=== PATIENT | female | born 1965 | race Caucasian/White ===

== ENCOUNTER → 2020-08-09 17:48 | Outpatient (CLI) | payer OTHER, SELFPAY ==
--- NOTE | ~2020-08-09 | DEXA_ITS ---
Bone Density Report Name: Jaren Baird Age: 55 Sex: Female Ethnicity: White Date of : 1965 Indication: postmenopausal; screening for osteoporosis; Referring Provider: MELL, MIGDALIA Study: Bone densitometry was performed. Exam Date: August 09, 2020 Accession number: [id number] Bone Density: Region BMD T-score Z-score Classification AP Spine (L1-L4) 0.955 -0.8 0.4 Normal Femoral Neck (Left) 0.818 -0.3 0.9 Normal Total Hip (Left) 0.897 -0.4 0.4 Normal Femoral Neck (Right) 0.838 -0.1 1.1 Normal Total Hip (Right) 0.897 -0.4 0.4 Normal Total Hip Mean 0.897 -0.4 0.4 Normal World Health Organization criteria for BMD impression classify patients as: Normal (T-score at or above -1.0), Osteopenia (T-score between -1.0 and -2.5), or Osteoporosis (T-score at or below -2.5). 10-year Fracture Risk: FRAX not reported because: All T-scores for Spine Total, Hip Total, Femoral Neck at or above -1.0 Previous Exams: Region Exam Age BMD T-score BMD Change BMD Change Date g/cm2 vs Baseline vs Previous AP Spine(L1-L4) 08/09/2020 55 0.955 -0.8 -0.080* -0.080* 08/23/2015 50 1.035 -0.1 Total Hip(Left) 08/09/2020 55 0.897 -0.4 -0.032* -0.032* 08/23/2015 50 0.930 -0.1 Total Hip(Right) 08/09/2020 55 0.897 -0.4 -0.041* -0.041* 08/23/2015 50 0.938 0.0 *Denotes significance at 95% confidence level, LSC for AP Spine = 0.022 g/cm2, LSC for Total Hip = 0.027 g/cm2 Clinical Information Provided by Patient: Has used the following medications: Vitamin D Patient maximum height was 64.0 Menopause Age: 54 No regular weight bearing exercise Drinks caffeinated beverages Onset of menses at age 10 Number of children 2 Impression: The patient has normal bone mass. The BMD for the AP Spine(L1-L4) decreased, changing by -0.080 since the last DXA exam. The BMD for the Total Hip(Left) decreased, changing by -0.032 since the last DXA exam. The BMD for the Total Hip(Right) decreased, changing by -0.041 since the last DXA exam. Discussion: BONE DENSITY IS ABOVE THE MINIMUM DESIRABLE LEVEL AT ALL SKELETAL SITES TESTED. This patient?s bone mineral density is above the minimum desirable level (T-score -1.0 or better) at all sites measured. The patient should follow a healthful lifestyle (good nutrition with adequate calcium and vitamin D, and appropriate weight-bearing exercise). Follow-Up: Consider repeati
--- NOTE | ~2020-08-09 | MM_ITS ---
EXAMINATION: MM screening [facility] BI w caridad HISTORY: Screening TECHNIQUE: Craniocaudal and mediolateral oblique 3-D tomosynthesis images were obtained and synthetic 2-D images were generated. CAD analysis was submitted and interpreted. COMPARISON: Comparison to multiple prior studies sequentially, with oldest reviewed study dated 11/2016. BREAST PARENCHYMAL COMPOSITION: There are scattered areas of fibroglandular density. FINDINGS: There is no evidence of suspicious mass, calcification, or architectural distortion to sugg est malignancy in either breast. There has been no suspicious interval change. IMPRESSION: 1. No mammographic evidence of malignancy. 2. Recommend routine screening mammography in one year. BI-RADS Category 1: Negative Reviewed, dictated and finalized at location A.
== END ==
PROVIDERS: Visit Provider Nurse Practitioner
DX: Z12.31 Encounter for screening mammogram for malignant neoplasm of breast (principal); Z78.0 Asymptomatic menopausal state
CPT/HCPCS: 77063; 77067; 77080

== ENCOUNTER → 2021-09-26 16:48 | Outpatient (CLI) | payer OTHER, SELFPAY ==
--- NOTE | ~2021-09-26 | MM_ITS ---
EXAMINATION: MM screening [facility] w car[facility] HISTORY: Screening mammogram TECHNIQUE: Craniocaudal and mediolateral oblique 3-D tomosynthesis images were obtained and synthetic 2-D images were generated. CAD analysis was submitted and interpreted. COMPARISON: 08/09/2020, 06/16/2019 bilateral screening mammogram examinations 04/25/2018 bilateral diagnostic mammogram BREAST PARENCHYMAL COMPOSITION: There are scattered areas of fibroglandular density. FINDINGS: There is no evidence of suspicious mass, calcification, or architectural distortion to sugg est malignancy in either breast. There has been no suspicious interval change. IMPRESSION: 1. No mammographic evidence of malignancy. 2. Recommend routine screening mammography in one year. BI-RADS Category 1: Negative Reviewed, dictated and finalized at location A.
== END ==
PROVIDERS: PCP Family Medicine; Visit Provider Nurse Practitioner
DX: Z12.31 Encounter for screening mammogram for malignant neoplasm of breast (principal)
CPT/HCPCS: 77063; 77067

== ENCOUNTER → 2022-11-30 12:14 | Outpatient (CLI) | payer OTHER, SELFPAY ==
--- NOTE | ~2022-11-30 | MM_ITS ---
EXAMINATION: MM screening [facility] BI w caridad HISTORY: Screening mammogram TECHNIQUE: Craniocaudal and mediolateral oblique 3-D tomosynthesis images were obtained and synthetic 2-D images were generated. CAD analysis was submitted and interpreted. COMPARISON: 09/26/2021, 08/09/2020, 06/16/2019 BREAST PARENCHYMAL COMPOSITION: There are scattered areas of fibroglandular density. FINDINGS: No suspicious mass, calcification, or architectural distortion are identified in either juarez ast to suggest malignancy. There has been no suspicious interval change. IMPRESSION: 1. No mammographic evidence of malignancy. 2. Recommend routine screening mammography in one year. BI-RADS Category 1: Negative Reviewed, dictated and finalized at location A.
== END ==
PROVIDERS: PCP Obstetrics & Gynecology Gynecology; Visit Provider Obstetrics & Gynecology Gynecology
DX: Z12.31 Encounter for screening mammogram for malignant neoplasm of breast (principal)
CPT/HCPCS: 77063; 77067

== ENCOUNTER 2023-03-19 20:34 | Observation (INO) | payer OTHER, SELFPAY ==
[2023-03-19] VITALS (10 sets, daily range): BP systolic 93–115; BP diastolic 63–77; PULSE 117–147; RESP 13–20; TEMP 36.4–36.5; O2SAT 99–100; BMI 20.3
--- NOTE | ~2023-03-19 | XR_ITS ---
EXAMINATION: XR chest 1V portable INDICATION: Chest pain and palpitations TECHNIQUE: Portable AP chest at 2106 hours COMPARISON: None available FINDINGS: The lungs are free of acute opacities. No pleural effusion or pneumothorax. The cardiomedia stinal silhouette is normal. IMPRESSION: 1. No acute cardiopulmonary abnormality. Reviewed, dictated and finalized at location F.
--- NOTE | 2023-03-19 20:37 | ECG_ITS ---
Measurements Intervals [place] Rate: 147 P: PA: 0 QRS: 28 QRSD: 89 T: 40 QT: 332 QTc: 520 Interpretive Statements REDUCED QUALITY ELECTROCARDIOGRAM BECAUSE OF BASELINE ARTIFACT ATRIAL FIBRILLATION WITH RAPID VENTRICULAR RESPONSE NONSPECIFIC ST AND T-WAVE ABNORMALITY ABNORMAL ECG NO PREVIOUS ECG AVAILABLE FOR COMPARISON Electronically Signed On 03-20-2023 8:52:19 CDT by Zeb Eqsuivel M.D.
--- NOTE | 2023-03-19 20:51 | ED.GENADULT ---
HPI - General Adult General Chief complaint: Arrhythmia/Palpitations Stated complaint: afib, nausea, vomiting Time Seen by Provider: 03/19/23 20:38 History of Present Illness HPI narrative: Patient is a 58-year-old female presents emergency department with chief complaint of a strange feeling in her chest. Patient reports that she had a COVID shot today then went to a bar/restaurant to have a couple of cocktails felt as though she was getting very drunk off of 2 drinks and then went outside got nauseated and started having an episode of vomiting and then felt as though she had some tightness in her chest. EMS was called the patient was found to be in atrial fibrillation with rapid ventricular response was transported to the emergency department Related Data Home Medications Medication Instructions Recorded Confirmed cholecalciferol (vitamin D3) 50 50 mcg PO DAILY 01/14/22 01/22/23 mcg (2,000 unit) capsule Allergies Allergy/AdvReac Type Severity Reaction Status Date / Time No Known Allergies Allergy Verified 01/22/23 09:57 Review of Systems Review of Systems: A 10 system review of systems was completed on the patient and is negative except for what is stated in the HPI. Nursing and ancillary documentation was reviewed. PMFSH Past Medical History Medical History Elevated bilirubin Healthy adult Family History Family History Mother Family history of arthritis Father Family history of arthritis Malignant neoplasm of prostate Social History Social History Smoking status: Never smoker Second hand tobacco smoke exposure: No Alcohol intake: never Drinks per week: 3 Substance use: never Substance use type: does not use Lack of Transportation: No Lack of Food: Never True Current Housing: I Have Housing Concerned About Future Housing: No Difficulty Paying Gas/Electric Bills: No Difficulty Paying for Meds: No Currently Unemployed: No Education: Master's Degree or Higher Difficulty w/ Childcare or Family Care: No Occupation/Education: occupation 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 HEAD: Normocephalic, atraumatic. EYES: PERRLA and EOMI. ENT: Nares clear, no rhinorrhea or epistaxis. Mucous membranes moist. NECK: Supple. CHEST: Clear to auscultation. No respiratory distress. HEART: Tachycardic rate and irregular rhythm. No murmur heard. Normal peripheral pulses. ABDOMEN: Soft, nontender, nondistended, normal active bowel sounds. EXTREMITIES: Normal range of motion. No edema. SKIN: Warm, dry, no rash. NEURO: No focal deficits. Alert and oriented x3. PSYCH: Anxious. Course Vital Signs Vital signs: Vital Signs Temperature 36.5 C 03/19/23 20:41 Pulse Rate 129 H 03/19/23 20:41 Respiratory Rate 20 03/19/23 20:41 Blood Pressure 115/74 03/19/23 20:41 Pulse Oximetry 100 03/19/23 20:41 Oxygen Delivery Room Air 03/19/23 20:41 Temperature 36.5 C 03/19/23 20:41 Pulse Rate 117 H 03/19/23 21:20 Respiratory Rate 15 03/19/23 21:20 Blood Pressure 113/77 03/19/23 21:20 Pulse Oximetry 99 03/19/23 21:20 Oxygen Delivery Room Air 03/19/23 20:41 Medical Decision Making MDM Narrative Medical decision making narrative: Differential diagnosis includes A-fib with RVR ACS, electrolyte abnormality, hyper or hypothyroidism Laboratory studies were obtained on the patient which showed a normal CBC electrolytes showed a potassium of 3.1 bilirubin was 2.2 otherwise liver enzymes were normal troponin was negative BNP was 68 lipase was normal TSH was 0.842 Chest x-ray showed no foca
[2023-03-19] MEDS: dilTIAZem HCl INJ 25 MG/5 ML VIAL 10 MG IV PUSH (21:01)
[2023-03-19] MEDS: ASPIRIN 81 MG CHEWABLE TABLET 324 MG PO (21:01)
[2023-03-19] MEDS: dilTIAZem 100 MG/100 ML 100 MG/100 ML BAG IV CONT (21:15)
[2023-03-19 21:17] LABS: Basophils Absolute Auto 0.1 K/mm3 (0.0-0.1); Basophils Percent Auto 0.5 % (0.2-1.2); Eosinophils Absolute Auto 0.1 K/mm3 (0-0.3); Eosinophils Percent Auto 1.1 % (0-4.4); Hematocrit 44.5 % (37.0-47.0); Hemoglobin 14.9 g/dL (12.0-15.0); Immature Granulocyte Absolute 0.04 K/mm3 (0.00-0.031); Immature Granulocyte Percent A 0.4 % (0-0.5); Lymphocytes Absolute Auto 2.71 K/mm3 (0.9-3.2); Lymphocytes Percent Auto 27.8 % (18.3-44.2); Mean Corpuscular HGB Conc 33.5 g/dl (32-36); Mean Corpuscular Hemoglobin 28.7 pg (26-34); Mean Corpuscular Volume 85.6 fl (80-100); Mean Platelet Volume 8.5 fl (7.4-10.4); Monocytes Absolute Auto 0.7 K/mm3 (0.1-0.6); Monocytes Percent Auto 6.7 % (2.6-8.5); Neutrophils Absolute Auto 6.2 K/mm3 (1.3-6.7); Neutrophils Percent Auto 63.5 % (45.5-73.1); Platelet Count Result 342 k/mm3 (150-375); Red Cell Distribution Width 12.5 % (11.5-14.5); White Blood Count 9.8 K/mm3 (4.5-10.0)
[2023-03-19 21:29] LABS: Alanine Aminotransferase 23 U/L (6-35); Albumin Level 4.7 g/dL (3.5-5.1); Alkaline Phosphatase 73 U/L (38-126); Anion Gap 16 mmol/L (8-16); Aspartate Amino Transferase 33 U/L (14-36); Bilirubin,Total 2.2 mg/dL (0.2-1.3); Blood Urea Nitrogen 11 mg/dL (7-17); Calcium 9.2 mg/dL (8.4-10.2); Carbon Dioxide 20 mmol/L (22-30); Chloride 103 mmol/L (98-107); Estimated CRCL calculation 70 ml/min; Estimated Glomerular Filt Rate > 60; Glucose 148 mg/dL (65-110); Lipase 95 U/L (23-300); Magnesium 2.1 mg/dL (1.6-2.3); Potassium 3.1 mmol/L (3.4-5.0); Sodium 139 mmol/L (137-145)
[2023-03-19 21:35] LABS: INR 0.9; Partial Thromboplastin Time 26.2 SECONDS (22.3-36.8); Prothrombin Time 12.3 Seconds (11.1-14.7)
[2023-03-19 21:41] LABS: NT Pro B Type Natriuretic Pept 68 pg/mL (19.9-100); Troponin I < 0.012 ng/mL (0.000-0.034)
[2023-03-19 22:00] LABS: Thyroid Stimulating Hormone 0.842 uIU/mL (0.465-4.680)
[2023-03-19 23:14] LABS: Appearance Urine Clear (Clear); Bacteria Urine None Seen /hpf; Bilirubin Urine Negative (Negative); Blood Urine Negative (Negative); Color Urine Yellow (Yellow); Glucose Urine UA Negative (Negative); Ketones Urine 1+ mg/dL (Negative); Leukocyte Esterase Ur 2+ LEU/UL (Negative); Nitrate Urine Negative (Negative); Non Pathogenic Casts 0-2; Protein Urine Negative (Negative); RBC Urine 0-2 /hpf (0-2); Specific Grav Ur 1.011 (1.001-1.035); Squamous Epithelial Cell Urine None seen /hpf (Few); Urobilinogen Urine 0.2 mg/dL (<2.0); WBC Urine 21-50 /hpf; pH Urine 6.5 (5.0-9.0)
[2023-03-19 23:36] LABS: Add Urine Microscopic? YES
[2023-03-19] MEDS: ENOXAPARIN 60 MG/0.6 ML SYRINGE 56 MG SUB-Q (23:42)
--- NOTE | 2023-03-19 23:50 | PC.NURSE ---
This patient, Jaren Baird, was admitted to IMU Room 210-01. Patient/family oriented to hospital policies and general routines including ID bracelet, bed and alarms, visiting hours, pain management, procedures, bathroom and other care routines, personal items, smoking policy, room service/diet, and visiting hours. Information on how to activate the Rapid Response Team has been discussed. Patient/Family are encouraged to report perceived risks to care and to ask questions if they do not understand what they are told or what they should do.
[2023-03-20] VITALS (21 sets, daily range): BP systolic 100–130; BP diastolic 57–65; PULSE 61–118; RESP 12–18; TEMP 36.4–36.8; O2SAT 98–100
[2023-03-20 01:19] LABS: Troponin I < 0.012 ng/mL (0.000-0.034)
[2023-03-20 05:25] LABS: Troponin I < 0.012 ng/mL (0.000-0.034)
--- NOTE | 2023-03-20 07:12 | ECG_ITS ---
Measurements Intervals [place] Rate: 66 P: 72 NM: 140 QRS: 6 QRSD: 98 T: 7 QT: 419 QTc: 439 Interpretive Statements SINUS RHYTHM WITH SINUS ARRHYTHMIA WITHIN NORMAL LIMITS COMPARED TO ECG 03/19/2023 20:39:50 SINUS RHYTHM NOW REPLACES ATRIAL FIBRILLATION Electronically Signed On 03-21-2023 8:14:33 CDT by Zeb Esquivel M.D.
[2023-03-20] MEDS: ASPIRIN 81 MG CHEWABLE TABLET PO (08:04)
--- NOTE | 2023-03-20 10:17 | PM.IMHP ---
H&P: HPI History of Present Illness Date/Time: 03/20/23 10:17 Chief Complaint: Palpitation t Narrative: Patient is a 58-year-old female without significant past med history, present ED with a chief complaint of palpitation and chest discomfort. Patient received COVID and went to a bar/restaurant to have a couple of cocktails felt very drunk off of 2 drinks and started feeling nauseated and started vomiting. Patient denies black emesis, melena, red blood per rectum. Patient feels palpitation and chest discomfort. EMS was called, and patient was brought to ED for evaluation treatment. In the ED, the patient was found to be in atrial fibrillation with rapid ventricular response was transported to the emergency department. In the ED, patient found AFib RVR, no specific ST-T changes, heart rate about 147 blood pressure soft, and patient also found to have hypokalemia 3.1, elevated bilirubin 2.2, liver enzymes within normal limit, troponin negative, BNP 6 to, TSH 0.842. Chest x-ray showed no focal infiltrate. Patient was given a Cardizem bolus and was started on a Cardizem drip in the ED, we admit patient for further evaluation and management Review of Systems Review of Systems: ROS negative except above PMFSH Past Medical History Medical History Elevated bilirubin Healthy adult Family History Family History (Updated 03/20/23 @ 00:10 by Marina Cook RN) Mother Family history of arthritis Malignant ovarian neoplasm Father Malignant neoplasm of prostate Family history of arthritis Social History Social History Smoking status: Never smoker Second hand tobacco smoke exposure: No Alcohol intake: current Drinks per week: 3 Substance use: never Substance use type: does not use Lack of Transportation: No Lack of Food: Never True Current Housing: I Have Housing Concerned About Future Housing: No Difficulty Paying Gas/Electric Bills: No Difficulty Paying for Meds: No Currently Unemployed: No Education: Bachelor's Degree Difficulty w/ Childcare or Family Care: No Occupation/Education: occupation 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: No Agree to blood products: Yes Meds Home Medications and Allergies Home Medications Medication Instructions Recorded Confirmed Type cholecalciferol (vitamin D3) 25 75 mcg PO DAILY 03/19/23 03/19/23 History mcg (1,000 unit) tablet (Vitamin D3) Allergies Allergy/AdvReac Type Severity Reaction Status Date / Time No Known Allergies Allergy Verified 03/19/23 23:53 Vital Signs Vital Signs - 24 hr 03/19/23 20:41 03/19/23 21:15 03/19/23 21:17 Temperature 97.7 F Pulse Rate 129 H 121 H 134 H Respiratory Rate 20 Blood Pressure 115/74 113/77 Pulse Oximetry 100 Oxygen Delivery Room Air 03/19/23 21:20 03/19/23 22:25 03/19/23 23:00 Temperature Pulse Rate 117 H 132 H 138 H Respiratory Rate 15 Blood Pressure 113/77 93/66 L Pulse Oximetry 99 Oxygen Delivery 03/19/23 22:53 03/19/23 23:12 03/19/23 23:15 Temperature Pulse Rate 145 H 147 H 131 H Respiratory Rate 13 15 15 Blood Pressure 96/68 L 109/71 109/71 Pulse Oximetry 100 100 100 Oxygen Delivery 03/19/23 23:50 03/20/23 00:00 03/20/23 00:00 Temperature 97.5 F L Pulse Rate 125 H 111 H Respiratory Rate 16 Blood Pressure 98/63 L Pulse Oximetry 100 Oxygen Delivery Room Air 03/20/23 02:00 03/20/23 03:10 03/20/23 04:00 Temperature 97.5 F L Pulse Rate 118 H 101 H 116 H Respiratory Rate 16 Blood Pressure 114/65 Pulse Oximetry 98 Oxygen Delivery 03/20/23 04:35 03/20/23 04:00 03/20/23 06:00 Temperature Pulse Rate 96 87 Respiratory Rate Blood Pressure Pulse Oximetry Oxygen Delivery Room Air 03/20/23 07:59 03/20
--- NOTE | 2023-03-20 10:29 | ECHO_ITS ---
Patient Info Name: Jaren Baird Age: 58 years : 1965 Gender: Female Ht: 63 in Wt: 115 lbs BSA: 1.52 m2 HR: 78 bpm BP: 102 / 57 mmHg Heart Rhythm: Sinus Rhythm Technical Quality: Fair Exam Date: 03/20/2023 1:53 PM Exam Location: [facility] Pulmonary Patient Status: Inpatient Admit Date: 03/19/2023 Staff Ordering Physician: Enriqueta Dawson MD [employer]: Mami Shukla RDCS Attending Provider: John Velasquez MD Exam Type: CA echo doppler color flow Study Info Indications - dizziness Complete two-dimensional, color flow and Doppler transthoracic echocardiogram is performed. Summary 1. Complete two-dimensional, color flow and Doppler transthoracic echocardiogram is performed. 2. Normal left and right ventricular size with normal systolic function. 3. Mild aortic valve sclerosis with trivial AI and no aortic stenosis. 4. Sinus rhythm. Left Ventricle Left ventricular chamber dimension is normal. Left ventricular systolic function is normal, estimated at 60-65%. The left ventricular diastolic function is normal. Right Ventricle Right ventricular chamber dimension is normal. Left Atria Left atrial chamber dimension is normal. Right Atria Right atrial chamber dimension is normal. Aortic Valve The aortic valve is trileaflet. There is mild aortic valve sclerosis. There is trace aortic valve regurgitation. Pulmonic Valve The pulmonic valve is normal. Mitral Valve The mitral valve has normal leaflets. Tricuspid Valve The tricuspid valve leaflets are normal. Pericardium/Pleural The pericardium appears normal. Aorta The aortic root size at the sinus of Valsalva is normal. Left Ventricular Outflow Tract Name Value Normal LVOT 2D LVOT Diameter 2.0 cm LVOT Doppler LVOT Peak Gradient 4 mmHg LVOT Mean Gradient 3 mmHg LVOT VTI 21 cm LVOT VTI/AV VTI Ratio 0.9 LVOT Stroke Volume 65 ml LVOT CO 14.6 l/min LVOT CI 9.6 l/min/m2 Pulmonic Valve Name Value Normal RVOT Doppler RVOT Peak Gradient 1 mmHg PV Doppler PV Peak Gradient 2 mmHg Mitral Valve Name Value Normal MV Doppler MV Decel [place] 335 cm/s2 MV PHT 65 ms MV Area (PHT) 3.4 cm2 4.0-5.0 MV Diastolic Function MV E Peak Velocity
--- NOTE | 2023-03-20 10:32 | PM.DS ---
DS: Summary Time Spent with Patient Time attestation: Total time spent providing and/or coordinating discharge services: DS: Data Data Completed and Pending Labs on day of discharge: Labs from last 24 hours 03/20/23 03/20/23 03/19/23 04:23 00:34 22:49 WBC RBC Hgb Hct MCV MCH MCHC RDW Plt Count MPV Immature Gran % (Auto) Neut % (Auto) Lymph % (Auto) [place] % (Auto) Eos % (Auto) Baso % (Auto) Lymph # (Auto) [place] # (Auto) Eos # (Auto) Baso # (Auto) Abs Immat Gran (auto) Absolute Neuts (auto) Absolute Nucleated RBC Nucleated RBC % PT INR APTT Sodium Potassium Chloride Carbon Dioxide Anion Gap BUN Creatinine Estim Creat Clear Calc Estimated GFR Glucose Calcium Magnesium Total Bilirubin AST ALT Alkaline Phosphatase Troponin I < 0.012 < 0.012 NT-Pro-B Natriuret Pep Total Protein Albumin Lipase TSH Urine Color Yellow Urine Appearance Clear Urine pH 6.5 Ur Specific [place] 1.011 Urine Protein Negative Urine Glucose (UA) Negative Urine Ketones 1+ H Ur Blood (Man) Negative Urine Nitrate Negative Urine Bilirubin Negative Urine Urobilinogen 0.2 Leukocyte Esterase Rfl 2+ H Urine RBC 0-2 Urine WBC 21-50 H Ur Squamous Epith Cells None seen Urine Bacteria None seen Urine Casts 0-2 03/19/23 03/19/23 03/19/23 21:04 21:04 21:04 WBC RBC Hgb Hct MCV MCH MCHC RDW Plt Count MPV Immature Gran % (Auto) Neut % (Auto) Lymph % (Auto) [place] % (Auto) Eos % (Auto) Baso % (Auto) Lymph # (Auto) [place] # (Auto) Eos # (Auto) Baso # (Auto) Abs Immat Gran (auto) Absolute Neuts (auto) Absolute Nucleated RBC Nucleated RBC % PT INR APTT Sodium Potassium Chloride Carbon Dioxide Anion Gap BUN Creatinine Estim Creat Clear Calc Estimated GFR Glucose Calcium Magnesium Total Bilirubin AST ALT Alkaline Phosphatase Troponin I NT-Pro-B Natriuret Pep Total Protein Albumin 4.7 Lipase 95 Cancelled TSH 0.842 Cancelled Urine Color Urine Appearance Urine pH Ur Specific [place] Urine Protein Urine Glucose (UA) Urine Ketones Ur Blood (Man) Urine Nitrate Urine Bilirubin Urine Urobilinogen Leukocyte Esterase Rfl Urine RBC Urine WBC Ur Squamous Epith Cells Urine Bacteria Urine Casts 03/19/23 03/19/23 03/19/23 21:04 21:04 21:04 WBC RBC Hgb Hct MCV MCH MCHC RDW Plt Count MPV Immature Gran % (Auto) Neut % (Auto) Lymph % (Auto) [place] % (Auto) Eos % (Auto) Baso % (Auto) Lymph # (Auto) [place] # (Auto) Eos # (Auto) Baso # (Auto) Abs Immat Gran (auto) Absolute Neuts (auto) Absolute Nucleated RBC Nucleated RBC % PT INR APTT Sodium Potassium Chloride Carbon Dioxide Anion Gap BUN Creatinine Estim Creat Clear Calc Estimated GFR Glucose Calcium Magnesium Total Bilirubin AST ALT Alkaline Phosphatase 73 Troponin I < 0.012 NT-Pro-B Natriuret Pep 68 Cancelled Total Protein 8.0 Cancelled Albumin Cancelled Lipase TSH Urine Color Urine Appearance Urine pH Ur Specific [place] Urine Protein Urine Glucose (UA) Urine Ketones Ur Blood (Man) Urine Nitrate Urine Bilirubin Urine Urobilinogen Leukocyte Esterase Rfl Urine RBC Urine WBC Ur Squamous Epith Cells Urine Bacteria Urine Casts 03/19/23 03/19/23 03/19/23 21:04 21:04 21:04 WBC RBC Hgb Hct MCV MCH MCHC RDW Plt Count MPV Immature Gran % (Auto) Neut % (Auto) Lymph % (Auto) [place] % (Auto) Eos %
[2023-03-20 11:08] LABS: Basophils Percent Auto 0.3 % (0.2-1.2); Eosinophils Absolute Auto 0.1 K/mm3 (0-0.3); Eosinophils Percent Auto 0.6 % (0-4.4); Hematocrit 42.5 % (37.0-47.0); Hemoglobin 13.9 g/dL (12.0-15.0); Immature Granulocyte Absolute 0.01 K/mm3 (0.00-0.031); Immature Granulocyte Percent A 0.1 % (0-0.5); Lymphocytes Absolute Auto 2.42 K/mm3 (0.9-3.2); Lymphocytes Percent Auto 25.9 % (18.3-44.2); Mean Corpuscular HGB Conc 32.7 g/dl (32-36); Mean Corpuscular Volume 88.5 fl (80-100); Mean Platelet Volume 8.8 fl (7.4-10.4); Monocytes Absolute Auto 0.5 K/mm3 (0.1-0.6); Monocytes Percent Auto 5.5 % (2.6-8.5); Neutrophils Absolute Auto 6.3 K/mm3 (1.3-6.7); Neutrophils Percent Auto 67.6 % (45.5-73.1); Platelet Count Result 337 k/mm3 (150-375); Red Cell Distribution Width 12.8 % (11.5-14.5); White Blood Count 9.3 K/mm3 (4.5-10.0)
[2023-03-20 11:17] LABS: Anion Gap 5 mmol/L (8-16); Blood Urea Nitrogen 11 mg/dL (7-17); Carbon Dioxide 29 mmol/L (22-30); Chloride 103 mmol/L (98-107); Estimated CRCL calculation 82 ml/min; Estimated Glomerular Filt Rate > 60; Glucose 94 mg/dL (65-110); Magnesium 2.1 mg/dL (1.6-2.3); Potassium 3.4 mmol/L (3.4-5.0); Sodium 137 mmol/L (137-145)
[2023-03-20] MEDS: POTASSIUM CHLORIDE 20 MEQ PACKET (FOR LIQUID) 40 MEQ PO (11:44)
--- NOTE | 2023-03-20 12:42 | PM.CNCAR ---
Assessment and Plan Assessment and plan (1) Atrial fibrillation with rapid ventricular response: Code(s): I48.91 - Unspecified atrial fibrillation Status: Acute Plan This is a 58-year-old woman with a paucity of previous medical problems presenting with an episode of symptomatic atrial fibrillation last evening. She has an unremarkable cardiovascular physical exam and is back in sinus rhythm after receiving some intravenous diltiazem last evening. At this point I would recommend starting a low dose of metoprolol and will wait for her echocardiographic findings. Her chads Vasc score is 1 so she does not have to be anticoagulated at this time Zeb Esquivel MD [facility] History of Present Illness History of Present Illness Consult date/time: 03/20/23 12:42 Reason For Visit: New Onset A-fib w/RVR Narrative: This is a 58-year-old woman I am seeing at the request of the hospitalist because of atrial fibrillation. She has no prior history of this and I have not seen her previously in consultation. 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 She did have a couple of cocktails and afterwards while she was there she felt unwell in the sense of being lightheaded and somewhat nauseated. She thought that was very unusual to feel like that after is having a couple of drinks eventually she felt bad enough where she advised some of her colleagues to some in an ambulance. When EMS arrived she was noted to be in AFib with rapid ventricular response. She was brought to the emergency room here for evaluation and management. She was of course treated with intravenous diltiazem bolus and infusion. Over the night she was admitted to the IMU and she did convert to normal sinus rhythm. She feels a bit weak this morning but otherwise is comfortable and asymptomatic. She has normal looking electrocardiogram following conversion to sinus. She says she is not known to have any sort of cardiac problems in the past and she really does not have much in the way of significant past medical history she specifically denies hypertension dyslipidemia cigarette smoking or sleep disordered breathing. 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 An echocardiogram has been ordered by the hospitalists which has yet to be performed. Review of Systems Constitutional: Constitutional: Reports no additional constitutional complaints Eyes: Eyes: Reports no additional eye complaints ENT: Reports system reviewed and no additional complaints, except as documented Cardiovascular: Cardiovascular: Reports as per HPI Respiratory: Respiratory: Reports no additional respiratory complaints Gastrointestinal: Gastrointestinal: Reports no additional gastrointestinal complaints Musculoskeletal: Musculoskeletal: Reports no additional musculoskeletal complaints Integumentary/Breasts: Skin/Breast: Reports system reviewed and no additional complaints, except as docu Neurologic: Reports system reviewed and no additional complaints, except as documented Endocrine: Endocrine: Reports no additional endocrine complaints Hematologic/Lymphatic: Hematologic/Lymphatic: Reports no additional hematologic/lymphatic complaints Allergic/Immunologic: Allergic/Immunologic: Reports no additional allergic/immunologic complaints [facility] Past Medical History Medical History Elevated bilirubin Healthy adult Family History Family History (Updated 03/20/23 @ 00:10 by Marina Cook RN) Mother Family history of arthritis Malignant ovarian neoplasm Father Malignant neoplasm of prostate Family history of arthritis Social History Social History Smoking status: Never smoker Second hand tobacco smoke exposure: No Alcohol intake: c
[2023-03-20] MEDS: METOPROLOL SUCCINATE EXT REL 25 MG TABCR PO (13:25)
[2023-03-20 13:49] LABS: Amphetamine Screen Urine Negative (Negative); Barbiturate Screen Urine Negative (Negative); Benzodiazepines Screen Urine Negative (Negative); Cannabinoid Screen Urine Negative (Negative); Cocaine Screen Urine Negative (Negative); Methadone Screen Urine Negative (Negative); Opiate Screen Urine Negative (Negative); Phencyclidine Screen Urine Negative (Negative)
[2023-03-21] VITALS (9 sets, daily range): BP systolic 120; BP diastolic 61–62; PULSE 69–84; RESP 14–18; TEMP 36.3–36.7; O2SAT 97–99
[2023-03-21 04:35] LABS: Basophils Percent Auto 0.7 % (0.2-1.2); Eosinophils Absolute Auto 0.1 K/mm3 (0-0.3); Eosinophils Percent Auto 2.5 % (0-4.4); Immature Granulocyte Absolute 0.01 K/mm3 (0.00-0.031); Immature Granulocyte Percent A 0.2 % (0-0.5); Lymphocytes Absolute Auto 2.18 K/mm3 (0.9-3.2); Lymphocytes Percent Auto 39.4 % (18.3-44.2); Mean Corpuscular HGB Conc 33.3 g/dl (32-36); Mean Corpuscular Hemoglobin 29.2 pg (26-34); Mean Corpuscular Volume 87.6 fl (80-100); Mean Platelet Volume 8.4 fl (7.4-10.4); Monocytes Absolute Auto 0.5 K/mm3 (0.1-0.6); Monocytes Percent Auto 8.3 % (2.6-8.5); Neutrophils Absolute Auto 2.7 K/mm3 (1.3-6.7); Neutrophils Percent Auto 48.9 % (45.5-73.1); Platelet Count Result 250 k/mm3 (150-375); Red Blood Count 4.45 M/mm3 (4.2-5.4); Red Cell Distribution Width 12.8 % (11.5-14.5); White Blood Count 5.5 K/mm3 (4.5-10.0)
[2023-03-21 05:03] LABS: Anion Gap 2 mmol/L (8-16); Blood Urea Nitrogen 13 mg/dL (7-17); Calcium 8.8 mg/dL (8.4-10.2); Carbon Dioxide 29 mmol/L (22-30); Chloride 106 mmol/L (98-107); Estimated CRCL calculation 70 ml/min; Estimated Glomerular Filt Rate > 60; Glucose 92 mg/dL (65-110); Potassium 3.5 mmol/L (3.4-5.0); Sodium 137 mmol/L (137-145)
--- NOTE | 2023-03-21 09:09 | PM.PNCARD ---
Progress Note: A&P Assessment and Plan (1) Atrial fibrillation with rapid ventricular response: Code(s): I48.91 - Unspecified atrial fibrillation Status: Acute Plan 58-year-old woman with paroxysmal atrial fibrillation. Patient has mild sclerosis of the aortic valve with trivial AI otherwise no structural cardiac abnormalities on echo. At this time her modest dose of metoprolol should be continued and I will see her in the office for follow-up. She does not require anticoagulation at this time as I mentioned in my consultation note yesterday. Anticipate discharge home today. Zeb Esquivel MD [facility] Subjective Date/time seen: Date of service: 03/21/23 09:09 Interval history: Follow-up visit in this 58-year-old woman with paroxysmal atrial fibrillation Exam Const: General: comfortable and no acute distress HENMT: Mouth: Yes moist mucous membranes Eyes: Sclera: sclerae normal Neck: Neck: supple and no JVD Resp: Effort & Inspection: normal respiratory effort Auscultation: clear to auscultation bilaterally Cardio: Rate: regular rate Rhythm: regular rhythm GI: GI Palp: Yes Soft to palpation Auscultation: normal bowel sounds Skin: General skin exam: normal color Neuro: Other: Alert and oriented x3 Objective Data Vital Signs Vital Signs: Vital Signs - 24 hr 03/20/23 10:00 03/20/23 11:29 03/20/23 12:00 Temperature 36.7 C Pulse Rate 72 65 83 Respiratory Rate 16 Blood Pressure 102/57 L Pulse Oximetry 98 Oxygen Delivery 03/20/23 13:25 03/20/23 14:00 03/20/23 15:55 Temperature 36.8 C Pulse Rate 74 70 88 Respiratory Rate 12 Blood Pressure 130/64 Pulse Oximetry 99 Oxygen Delivery 03/20/23 19:38 03/20/23 16:00 03/20/23 18:00 Temperature 36.8 C Pulse Rate 71 67 81 Respiratory Rate 16 Blood Pressure 121/59 L Pulse Oximetry 99 Oxygen Delivery 03/20/23 22:42 03/20/23 20:00 03/20/23 22:00 Temperature 36.6 C Pulse Rate 79 70 84 Respiratory Rate 16 Blood Pressure 127/61 Pulse Oximetry 100 Oxygen Delivery 03/21/23 00:00 03/21/23 04:17 03/20/23 20:16 Temperature 36.3 C L Pulse Rate 75 74 Respiratory Rate 18 Blood Pressure 120/62 Pulse Oximetry 99 99 Oxygen Delivery Room Air 03/21/23 02:00 03/21/23 04:00 03/21/23 06:00 Temperature Pulse Rate 73 69 72 Respiratory Rate Blood Pressure Pulse Oximetry Oxygen Delivery 03/21/23 08:00 Temperature 36.7 C Pulse Rate 71 Respiratory Rate 14 Blood Pressure 120/61 Pulse Oximetry 97 Oxygen Delivery Intake/Output Intake/Output: Intake & Output 03/18/23 03/19/23 03/20/23 03/21/23 23:59 23:59 23:59 23:59 Intake Total 1150 540 Output Total 1050 400 Balance 100 140 Meds/Results Medications: Active Medications Generic Name Dose Route Start Last Admin Trade Name Freq PRN Reason Stop Dose Admin Aspirin 81 mg 03/20/23 08:00 03/20/23 08:04 Aspirin 81 Mg Chewable Tablet PO 81 mg DAILY@0800 JAYESH Administration Metoprolol Succinate 25 mg 03/20/23 12:45 03/20/23 13:25 Metoprolol Succinate Ext Rel 25 Mg Tabcr PO 25 mg QAM JAYESH Administration Perflutren Lipid Microsphere 0 ml 03/20/23 10:29 Perflutren Lipid Microspheres 1.5 Ml Vial Diluted To 10 Ml Total Volume IV PUSH 03/23/23 10:29 ONCE PRN adequate visualization Protocol Radiology Results: ITS Impressions Chest X-Ray 03/19/23 21:17 IMPRESSION: 1. No acute cardiopulmonary abnormality. Labs Labs: Laboratory Results - last 24 hr 03/20/23 03/20/23 03/21/23 04:19 13:11 04:25 WBC 9.3 5.5 RBC 4.80 4.45 Hgb 13.9 13.0 Hct 42.5 39.0 MCV 88.5 87.6 MCH 29.0 29.2 MCHC 32.7 33.3 RDW 12.8 12.8 Plt Count 337 250 MPV 8.8 8.4 Immature Gran % (Auto) 0.1 0.2 Neut % (Auto) 67.6 48.9 Lymph % (Auto) 25.9 39.4 Glynn % (Auto) 5.5 8.3 Eos % (Auto) 0.6 2.5 Baso % (Aut
[2023-03-21] MEDS: ASPIRIN 81 MG CHEWABLE TABLET PO (09:13)
[2023-03-21] MEDS: METOPROLOL SUCCINATE EXT REL 25 MG TABCR PO (09:13)
--- NOTE | 2023-03-21 11:53 | PM.DS ---
DS: Admitting Diagnosis Discharge Date March 21, 2020 Admitting Diagnosis AFib DS: Discharge Diagnosis Discharge Diagnosis (1) Atrial fibrillation with rapid ventricular response: Code(s): I48.91 - Unspecified atrial fibrillation Status: Acute Assessment and Plan: Atrial fibrillation Patient denies history of AFib New onset AFib with RVR Unclear etiologies, patient received a COVID-19 vaccine yesterday and drank alcohol EKG revealed AFib without specific ST-T change, troponin negative TSH within normal limits Chest x-ray unremarkable Received Cardizem drip, continue Cardizem drip prn, now patient has sinus rhythm Follow echocardiogram, drug screening, Consult metrologist evaluation and treatment Hypokalemia Replace with potassium chloride Follow-up BMP follow-up magnesium level UTI UA shows pyuria Start ceftriaxone IV 1 g and IV daily follow urine culture Patient may stay more than 2 midnights in the hospital (2) Hypokalemia: Code(s): E87.6 - Hypokalemia Status: Acute DS: Summary Hospital Course Hospital Course: Admitted for AFib, cardiology consult. Beta-kajal started. No need for anticoagulation. Aspirin on discharge. Okay for discharge Time Spent with Patient Time attestation: Total time spent providing and/or coordinating discharge services: Exam Narrative: GENERAL: Pleasant, in no acute distress. Well-nourished. - EYES: EOMI. Anicteric. - HENT: Moist mucous membranes. - LUNGS: Clear to auscultation bilaterally, no wheezing, rhonchi, or rales. - CARDIOVASCULAR: Regular rhythm, tachycardia,. No murmur. No JVD. - ABDOMEN: Soft, non-tender and non-distended. No palpable masses. - EXTREMITIES: No edema. Peripheral pulses 2+. Non-tender. - NEUROLOGIC: No focal neurological deficits. CN II-XII grossly intact. - PSYCHIATRIC: Awake, Alert and oriented x 3. Appropriate mood and affect. - SKIN: No rashes or lesions. Warm. - LYMPH: No cervical lymphadenopathy. DS: Data Data Completed and Pending Labs on day of discharge: Labs from last 24 hours 03/21/23 03/20/23 04:25 13:11 WBC 5.5 RBC 4.45 Hgb 13.0 Hct 39.0 MCV 87.6 MCH 29.2 MCHC 33.3 RDW 12.8 Plt Count 250 MPV 8.4 Immature Gran % (Auto) 0.2 Neut % (Auto) 48.9 Lymph % (Auto) 39.4 [place] % (Auto) 8.3 Eos % (Auto) 2.5 Baso % (Auto) 0.7 Lymph # (Auto) 2.18 [place] # (Auto) 0.5 Eos # (Auto) 0.1 Baso # (Auto) 0.0 Abs Immat Gran (auto) 0.01 Absolute Neuts (auto) 2.7 Absolute Nucleated RBC 0.0 Nucleated RBC % 0.0 Sodium 137 Potassium 3.5 Chloride 106 Carbon Dioxide 29 Anion Gap 2 L BUN 13 Creatinine 0.60 L Estim Creat Clear Calc 70 Estimated GFR > 60 Glucose 92 Calcium 8.8 Urine Opiates Screen Negative Urine Methadone Screen Negative Ur Barbiturates Screen Negative Ur Phencyclidine Scrn Negative Ur Amphetamine Screen Negative U Benzodiazepines Scrn Negative Urine Cocaine Screen Negative U Cannabinoids Screen Negative Discharge Plan Discharge Attending physician on discharge: Zeb Ocasio Consulting providers: Zeb Esquivel Discharging Clinician: Zeb Ocasio Patient Disposition: Home, Self-Care Activity: as tolerated Diet: as tolerated Patient Instructions: Antibiotic Form Stand Alone Forms: General Discharge Information Follow-up/Referrals: Zeb Esquivel MD [Physician] - Discharge Medications: New aspirin [Children's Aspirin] 81 mg Tablet,Chewable 81 mg PO DAILY@0800 30 Days Qty: 30 0RF metoprolol succinate [Toprol XL] 25 mg Tablet Extended Release 24 Hr 25 mg PO QAM 30 Days Qty: 30 0RF Continued cholecalciferol (vitamin D3) [Vitamin D3] 25 mcg (1,000 unit) Tablet 75 mcg PO DAILY Date of admission: 03/19/23 22:13 Primary Care Provider: Namita Maloney Admitting Provider: John Velasquez V. Attending physicia
== END 2023-03-21 12:26 | disposition home or self-care (01) ==
LOC: ANHED 22:07 → ANHIMU 03-21 11:53
PROVIDERS: Admitting Provider Hospitalist; Emergency Provider Emergency Medicine; PCP Family Medicine; Visit Provider Chiropractor
DX: I48.91 Unspecified atrial fibrillation (principal); E87.6 Hypokalemia; R17 Unspecified jaundice; I35.8 Other nonrheumatic aortic valve disorders
CPT/HCPCS: 36415; 71045; 80048; 80053; 80307; 81001; 83690; 83735; 83880; 84443; 84484; 85025; 85610; 85730; 87086; 87088; 93005; 93306; 96365; 96366; 96367; 96372; 99285; A9270; G0378; J0696; J1650

== ENCOUNTER 2023-12-14 12:38 | Outpatient (CLI) | payer OTHER, SELFPAY ==
--- NOTE | ~2023-12-14 | MM_ITS ---
EXAMINATION: MM screening [facility] w [facility] HISTORY: Screening TECHNIQUE: Craniocaudal and mediolateral oblique 3-D tomosynthesis images were obtained and synthetic 2-D images were generated. CAD analysis was submitted and interpreted. COMPARISON: Comparison to multiple prior studies sequentially, with oldest reviewed study dated 04/01. BREAST PARENCHYMAL COMPOSITION: Not dense: There are scattered areas of fibroglandular density. FINDINGS: There is no evidence of suspicious mass, calcification, or architectural distortion to sugg est malignancy in either breast. There has been no suspicious interval change. IMPRESSION: 1. No mammographic evidence of malignancy. 2. Recommend routine screening mammography in one year. BI-RADS Category 1: Negative Reviewed, dictated and finalized at location B.
== END 2023-12-14 12:39 ==
LOC: MICIMG 12:39
PROVIDERS: PCP Family Medicine; Visit Provider Obstetrics & Gynecology Gynecology
DX: Z12.31 Encounter for screening mammogram for malignant neoplasm of breast (principal)
CPT/HCPCS: 77063; 77067

== ENCOUNTER 2024-07-31 10:38 | Outpatient (CLI) | payer OTHER, SELFPAY | END 2024-07-31 10:39 | disposition home or self-care (01) | PROVIDERS: PCP Family Medicine; Visit Provider Nurse Practitioner Women's Health | DX: M85.88 Other specified disorders of bone density and structure, other site (principal); Z78.0 Asymptomatic menopausal state; Z13.820 Encounter for screening for osteoporosis | CPT/HCPCS: 77080 ==

== ENCOUNTER 2024-10-10 13:49 | Outpatient (CLI) | payer OTHER, SELFPAY ==
--- NOTE | ~2024-10-10 | XR_ITS ---
3 VIEWS LUMBAR SPINE Ordering provider: Namita Maloney MD History: . M54.50 - Low back pain, unspecified . Comparison: November 19, 2015 FINDINGS: VERTEBRAL BODIES: No visible fracture or subluxation. DISK SPACES: Normal. SOFT TISSUES: Normal. IMPRESSION: No acute osseous abnormality lumbar spine. Reviewed, dictated and finalized at location A.
--- NOTE | ~2024-10-10 | XR_ITS ---
AP and lateral views of the bilateral hips Clinical history: Pain Findings: No acute fracture or dislocation is seen. Osseous alignment is anatomic. Bilateral hip and SI joint spaces are preserved. Soft tissues are unremarkable. Impression: No significant abnormality is seen. Reviewed, dictated and finalized at location . Impression: No significant abnormality is seen.
--- OUTSIDE RECORDS SUMMARY | 2024-10-10 14:11 | XMS_ITS | Clinical Summary ---
Author Organization [facility] Address [address] [place] [address] Phone Care Team Providers Care Refund Specialist Name Role Phone Namita Maloney MD Primary Care Provider [phone] Allergies No known active allergies Medications Cholecalciferol (VITAMIN D PO) Take 1 Tab by mouth daily. Active IBUPROFEN PO Take by mouth Daily as needed. Active metoprolol Succinate (TOPROL-XL) 25 MG TABLET SR 24 HR Take 25 mg by mouth every morning. Active aspirin EC 81 MG Tablet Delayed Response Take 81 mg by mouth daily. Active Active Problems No known active problems Family History Medical History Relation Name Comments Asthma Father Cancer Father Other-comment Father scelorsing cho langitits Prostate Cancer Father Asthma Mother Cancer Mother bladder, ovaria n Other-comment Mother gastroparesis Relation Name Status Comments Father Alive Mother Alive Social History Tobacco Use Types Packs/Day Years Used Date Smoking Tobacco: Never Smokeless Tobacco: Never Alcohol Use Standard Drinks/Week Comments Yes 1 (1 standard drink = 0.6 oz pur e alcohol) Comments Unknown Sex and Gender Information Value Date Recorded Sex Assigned at Not on file Legal Sex Female 2:44 AM [employer] Gender Identity Not on file Sexual Orientation Not on file Last Filed Vital Signs Vital Sign Reading Time Taken Comments Blood Pressure 109/70 04/25/2024 7:51 AM [employer]ING [employer] ENG[employer]ER Pulse 73 04/25/2024 7:51 AM [employer] ENG[employer]ER Temperature 36 C (96.8 F) 04/25/2024 7:51 AM [employer]ING [employer] ENG[employer]ER Respiratory Rate 12 04/25/2024 7:51 AM [employer]ING [employer] ENG[employer]ER Oxygen Saturation 100% 04/25/2024 7:51 AM MANUFA[employer]ING [employer] ENG[employer]ER Inhaled Oxygen Concentration - - Weight 59 kg (130 lb) 04/25/2024 6:51 AM MANUFA[employer]ING [employer] ENG[employer]ER Height 161.3 cm (5' 3.5 ) 04/25/2024 6:51 AM MANUFA[employer]ING [employer] ENG[employer]ER Body Mass Index 22.67 04/25/2024 6:51 AM [employer]UFA[employer]ING [employer] ENG[employer]ER Plan of Treatment Health Maintenance Due Date Last Done Comments Hepatitis C Virus (HCV) Screening 1965 Mammogram 1965 TdaP Immunization 1963 Pap Smear 02/02/1984 Cervical Cancer Screening (CCS) 1993 HPV/Cotest 1993 Cologuard 2013 Immunochemical Fecal Occult Blood 2013 Pneumococcal Immunization (50+ years) (1 of 1 - PCV) 2013 Zoster Immunization (1 of 2) 2013 Influenza Immunization (#1) 2024 03/01/2019 SARS-COV-2 Immunization ( season) 2024 03/19/2023, 06/10/2022, 11/18/2021, Additional history exists Colonoscopy 04/25/2034 04/25/2024, 08/08/2018 Colorectal Cancer Screening 04/25/2034 Respiratory Syncytial Virus (RSV) Immunization (Adult) (1 - 1-dose 75+ series) 2038 04/25/2024, 08/08/2018 Hepatitis B Immunization Aged Out No longer eligible based on patient's age to complete this topic Meningococcal Immunization (ACWY) Aged Out No longer eligible based on patient's age to complete this topic Pneumococcal Immunization Combined Aged Out No longer eligible based on patient's age to complete this topic Rotavirus Immunization Aged Out No lo nger eligible based on patient's age to complete this topic Insurance [facility] OAP Care Teams Refund Specialist Relationship Specialty Start Date End Date Namita Maloney MD [address] [place] [address] PCP - General Family Medicine 06/01/18
== END 2024-10-10 13:50 | disposition home or self-care (01) ==
PROVIDERS: PCP Family Medicine; Visit Provider Family Medicine
DX: M54.50 Low back pain, unspecified (principal); M25.551 Pain in right hip; M25.552 Pain in left hip
CPT/HCPCS: 72110; 73521

== ENCOUNTER 2025-03-30 14:35 | Outpatient (CLI) | payer OTHER, SELFPAY ==
--- NOTE | ~2025-03-30 | MM_ITS ---
EXAMINATION: MM screening [facility] BI w caridad HISTORY: Screening TECHNIQUE: Craniocaudal and mediolateral oblique 3-D tomosynthesis images were obtained and synthetic 2-D images were generated. CAD analysis was submitted and interpreted. COMPARISON: Comparison to multiple prior studies sequentially, with oldest reviewed study dated 04/25/2018. BREAST PARENCHYMAL COMPOSITION: Not dense: There are scattered areas of fibroglandular density. FINDINGS: There is no evidence of suspicious mass, calcification, or architectural distortion to suggest malignancy in either breast. There has been no suspicious interval change. IMPRESSION: 1. No mammographic evidence of malignancy. 2. Recommend routine screening mammography in one year. BI-RADS Category 1: Negative Reviewed, dictated and finalized at location B.
== END 2025-03-30 14:36 | disposition home or self-care (01) ==
LOC: MICIMG 14:35
PROVIDERS: PCP Family Medicine; Visit Provider Obstetrics & Gynecology Gynecology
DX: Z12.31 Encounter for screening mammogram for malignant neoplasm of breast (principal)
CPT/HCPCS: 77063; 77067